=== PATIENT | female | born 1990 ===

== ENCOUNTER 2017-09-15 06:00 | Day surgery (SDC) | payer OTHER ==
[2017-09-15] MEDS ORDERED: PERCOCET 5-3251 EACH PO (08:02)
[2017-09-15] MEDS ORDERED: COLACE100 MG PO (08:02)
== END 2017-09-15 16:40 | disposition home or self-care (01) ==
LOC: CIR.AMB 06:00
DX: K64.4 Residual hemorrhoidal skin tags (principal); K64.8 Other hemorrhoids; K62.89 Other specified diseases of anus and rectum